=== PATIENT | male | born 1975 | race Caucasian/White ===

== ENCOUNTER 2016-12-30 13:28 | Emergency (ER) | payer MEDICAID, OTHER ==
[~2016-12-30] VITALS: Ht 165.1 cm; Wt 68.0 kg
[2016-12-30 13:28] VITALS: BP 125/90
[~2016-12-30 13:28] MED LIST: LEVE250T2 PO
--- NOTE | 2016-12-30 13:28 | NUR ---
PT BIBA TO BED 5 AT THIS TIME.
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
--- NOTE | 2016-12-30 14:14 | NUR ---
PT TAKEN TO CT VIA W/C ACCOMPANIED BY SUPERVISOR SHRIMP POND.
[2016-12-30 15:27] VITALS: BP 130/82
--- NOTE | 2016-12-30 15:27 | NUR ---
Patient discharged with v/s stable. Written and verbal after care instructions given and explained. Patient alert, oriented and verbalized understanding of instructions. Ambulatory with steady gait. All questions addressed prior to discharge. ID band removed. Patient advised to follow up with PMD. Rx of KEPRRA 250MG TAB given. Patient educated on indication of medication including possible reaction and side effects. Opportunity to ask questions provided and answered.
== END 2016-12-30 15:27 | disposition home or self-care (01) ==
LOC: MED 13:28
PROC: BW28ZZZ Computerized Tomography (CT Scan) of Head (ICD-10-PCS; principal; 2016-12-30)
DX: R41.82 Altered mental status, unspecified (principal); B69.0 Cysticercosis of central nervous system; R03.0 Elevated blood-pressure reading, without diagnosis of hypertension; R56.9 Unspecified convulsions
CPT/HCPCS: 70450; 99284